=== PATIENT | male | born 1960 | race Caucasian/White ===

== ENCOUNTER 2017-01-03 12:45 | Emergency (ER) | payer BC ==
--- NOTE | 2017-01-03 13:09 | ED Physician Documentation ---
PD HPI DYSPNEA - Stated complaint Stated Complaint: COUGH - Chief complaint Chief Complaint: Resp - History obtained from History obtained from: Patient - History of Present Illness Timing - onset: Other (3 WEEKS INTERMITTENT PRODUCTIVE COUGH, [place] AT NIGHT. LAST DTAP? NO CHEST PAIN OR URI SX, NO FEVERS, CHILLS, WEIGHT LOSS OR SWEATS. NO H/O PULM ISSUES OR SMOKING.) Review of Systems Constitutional: denies: Fever, Chills Respiratory: reports: Cough. denies: Dyspnea GI: denies: Abdominal Pain, Nausea, Vomiting PD PAST MEDICAL HISTORY - Present Medications Home Medications: Ambulatory Orders Medication Instructions Recorded Confirmed Azithromycin [Zithromax] 250 mg PO DAILY #6 tablet 01/03/17 guaiFENesin/CODEINE [Robitussin AC] 5 - 10 ml PO Q6H PRN #240 ml 01/03/17 - Allergies Allergies/Adverse Reactions: Allergies Allergy/AdvReac Type Severity Reaction Status Date / Time No Known Drug Allergies Allergy Verified 01/03/17 12:50 PD ED PE NORMAL - Vitals Vital signs reviewed: Yes - General General: Alert and oriented X 3, No acute distress - Neck Neck: Supple, no meningeal sign, No bony TTP - Cardiac Cardiac: RRR, No murmur - Respiratory Respiratory: No respiratory distress, Other (CRACKLES r BASE) - Abdomen Abdomen: Soft, Non tender - Extremities Extremities: No edema, No calf tenderness / cord - Neuro Neuro: Alert and oriented X 3, Normal speech - Psych Psych: Normal mood, Normal affect Results - Vitals Vitals: Vital Signs - 24 hr 01/03/17 01/03/17 12:48 13:58 Temperature 36.8 C 36.8 C Heart Rate 73 70 Respiratory 16 18 Rate Blood Pressure 126/79 140/80 H O2 Saturation 98 95 Oxygen O2 Source Room air - Rads (name of study) 2V CHEST Radiology: EMP read contemporaneously (NAD) PD MEDICAL DECISION MAKING - ED course ED course: 3 weeks of cough, pertussis is considered, a test is sent. [place] is visiting from out of the area so felt like if he needed a prescription it would be hard to fill. He Was given a [id number] prescription for Z-Tab, mostly needed cough syrup at night as well. Departure - Departure Disposition: 01 Home, Self Care Clinical Impression: Cough Condition: Good Record reviewed to determine appropriate education?: Yes Instructions: ED Bronchitis Asthmatic Prescriptions: guaiFENesin/CODEINE [Robitussin AC] 5 - 10 ml PO Q6H PRN #240 ml PRN Reason: Cough Azithromycin [Zithromax] 250 mg PO DAILY #6 tablet Comments: We will call you in a few days if the pertussis swab is negative, I would hold off on the antibiotics for 2-3 days unless worsening or if not improving that timeframe. Discharge Date/Time: 01/03/17 13:58
--- NOTE | 2017-01-03 13:41 | XRAY Preliminary Report ---
Exam: XR Chest 2 View PA/LAT IMPRESSION: Normal chest for age and body size. No CHF, pneumonia or other demonstrated cause for the patient's symptoms. [facility] SITE ID: [id number]
--- NOTE | 2017-01-03 13:44 | XRAY Report ---
EXAM: CHEST RADIOGRAPHY, 2 VIEWS EXAM DATE: 01/03/2017 01:25 PM. CLINICAL HISTORY: 56-year-old male with cough. Abnormal breath sounds left base. COMPARISON: None. TECHNIQUE: Upright PA and lateral views. FINDINGS: Lungs/Pleura: No focal opacities evident. No pleural effusion. No pneumothorax. Normal volumes. Mediastinum: Heart and mediastinal contours are unremarkable. No pulmonary vascular congestion or marcie nopathy. Other: Trachea is midline. Osseous structures are unremarkable. IMPRESSION: Normal chest for age and body size. No CHF, pneumonia or other demonstrated cause for the patient's symptoms. [facility] Referring Provider Line: [phone] SITE ID: [id number]
[2017-01-03 13:59] VITALS: BP 140/80
[2017-01-06 15:02] LABS: B. PARAPERTUSSIS DNA NOT DETECTED (()); B. PERTUSSIS DNA NOT DETECTED (())
== END 2017-01-03 13:58 | disposition home or self-care (01) ==
LOC: ED 12:45
DX: R05 Cough (principal)
CPT/HCPCS: 71020; 87801; 99283